=== PATIENT | male | born 1965 | race Caucasian/White ===

== ENCOUNTER → 2021-01-27 17:19 | Outpatient (CLI) | payer OTHER, SELFPAY ==
--- NOTE | ~2021-01-27 | XR_ITS ---
EXAMINATION: XR hip RT min 2V DATE: 01/27/2021 17:33 INDICATION: Right hip pain. TECHNIQUE: 2 views of right hip were obtained. COMPARISON: None. FINDINGS: Bone alignment is normal. No fracture. Right hip joint space is normal. IMPRESSION: 1. Normal right hip. Reviewed, dictated and finalized at location A. [employer]WORK IMPRESSION: 1. Normal right hip.
== END ==
PROVIDERS: PCP Family Medicine; Visit Provider Family Medicine
DX: M25.551 Pain in right hip (principal)
CPT/HCPCS: 73502

== ENCOUNTER 2021-04-10 00:49 | Day surgery (SDC) | payer OTHER, SELFPAY ==
[2021-03-31 15:36] VITALS: BMI 24.3
--- NOTE | 2021-04-09 09:25 | WPDANESEPPF ---
Anes - Initial Pre Proc Eval Procedure: Operation Date: 04/10/21 09:30 Proposed Procedures p Screening Colonoscopy - Devon Abel MD Date/Time: 04/09/21 09:25 Surgeon: Devon Abel MD Pre Op Diagnosis: family hx of colon ca, neoplasm screening Patient Data Age: 55 Gender: M Height: 1.78 m Weight: 77 kg Allergies Allergy/AdvReac Type Severity Reaction Status Date / Time No Known Allergies Allergy Verified 03/31/21 15:37 Home Medications Medication Instructions Recorded Confirmed Type No Home Medications 01/22/20 03/31/21 History Patient hx anesthesia problems: none Family hx anesthesia problems: none Results Review: All pre-operative results and documents have been reviewed as part of the pre-operative evaluation. [facility] Past Medical History Medical History (Updated 04/10/21 @ 08:58 by Primitivo Barraza DO) Degenerative arthritis of hip Family history of colon cancer Family history of prostate cancer Hyperlipidemia Trochanteric bursitis of right hip Wears glasses Family History Family History Father Carcinoma of colon Malignant neoplasm of prostate Social History Social History (Updated 03/04/21 @ 12:28 by Keri Bhandari) Smoking status: Never smoker Second hand tobacco smoke exposure: No Alcohol intake: current Drinks per week: 2 Substance use: never Substance use type: does not use Living arrangements: with family 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 [employer] Gender identity (if verbalized by the patient): Male Spiritual care concerns: No Anes - Eval Final PreProcedure Day of Procedure 04/09/21 09:25 Patient weight: normal Heart: regular rate and rhythm Lungs: clear to auscultation and normal air movement Airway: Mallampati scale class II Neurological: alert and oriented Last oral intake: >/= 8 hours ASA classification: II Emergent: no Anesthetic plan: proceed Anesthesia type and monitoring: general GIVS and standard monitoring Results Review: All pre-operative results and documents have been reviewed as part of the pre-operative evaluation. Informed Consent: The patient's anesthetic plan and its attendant risks and benefits were discussed with the patient/family/POA. Questions were solicited and answers provided to the satisfaction of the patient/family/POA.
--- NOTE | 2021-04-09 14:35 | PM.HPGS ---
History of Present Illness History of Present Illness Consent: Risks, benefits, and alternatives have been discussed and questions answered. Patient agrees to proceed with procedure. Chief complaint: family hx of colon ca, neoplasm screening Narrative: Burton Lakhani is a 55 year old male referred for colon cancer screening. His father had colon cancer. His last colonoscopy was 5 years ago Review of Systems Review of Systems: All systems reviewed & are unremarkable except as noted in HPI and below PMFSH Past Medical History Medical History Degenerative arthritis of hip Family history of colon cancer Family history of prostate cancer Hyperlipidemia Trochanteric bursitis of right hip Wears glasses Family History Family History Father Carcinoma of colon Malignant neoplasm of prostate Social History Social History Smoking status: Never smoker Second hand tobacco smoke exposure: No Alcohol intake: current Drinks per week: 2 Substance use: never Substance use type: does not use Living arrangements: with family Additional occupation/education comments: [employer] at [employer] Gender identity (if verbalized by the patient): Male Spiritual care concerns: No Meds Home Medications and Allergies Home Medications Medication Instructions Recorded Confirmed Type No Home Medications 01/22/20 03/31/21 History Allergies Allergy/AdvReac Type Severity Reaction Status Date / Time No Known Allergies Allergy Verified 03/31/21 15:37 Exam Resp: Auscultation: clear to auscultation bilaterally Cardio: Rate: regular rate Rhythm: regular rhythm GI: GI Palp: Yes Soft to palpation and No Tenderness to palpation present (GI) Assessment and Plan Assessment and plan (1) Colon cancer screening: Code(s): Z12.11 - Encounter for screening for malignant neoplasm of colon Status: Acute Assessment and Plan: Colonoscopy with possible biopsy or polypectomy or cautery or injection of substances.
[2021-04-10 08:38] VITALS: BP 111/78; PULSE 50; RESP 18; TEMP 36.8; O2SAT 100; BMI 24.1
[2021-04-10] MEDS: LACTATED RINGERS 1,000 ML 150 ML IV CONT (08:59)
[2021-04-10 09:54] VITALS: BP 93/57; PULSE 45; RESP 23; O2SAT 98
[2021-04-10 10:04] VITALS: BP 95/61; PULSE 46; RESP 22; O2SAT 98
[2021-04-10 10:14] VITALS: BP 119/62; PULSE 46; RESP 20; O2SAT 98
== END 2021-04-10 10:32 | disposition home or self-care (01) ==
PROVIDERS: PCP Family Medicine; Visit Provider Internal Medicine Gastroenterology
PROC: 0DJD8ZZ Inspection of Lower Intestinal Tract, Via Natural or Artificial Opening Endoscopic (ICD-10-PCS; CPT 45378; principal; 2021-04-10 09:30)
DX: Z12.11 Encounter for screening for malignant neoplasm of colon (principal); Z80.0 Family history of malignant neoplasm of digestive organs; M17.10 Unilateral primary osteoarthritis, unspecified knee; E78.5 Hyperlipidemia, unspecified
CPT/HCPCS: 45378; J2704; J7120

== ENCOUNTER → 2022-11-26 11:26 | Outpatient (CLI) | payer BC, SELFPAY ==
--- NOTE | ~2022-11-26 | XR_ITS ---
EXAMINATION: XR heel LT min 2V DATE: 11/26/2022 11:39 INDICATION: Left foot pain. TECHNIQUE: 2 views of left calcaneus were obtained. COMPARISON: None. FINDINGS: Bone alignment is normal. No fracture. There is a 2.3 cm nonaggressive lytic lesion in calc aneus. There are small enthesophytes at the posterior and plantar aspects of calcaneal tuberosity. IMPRESSION: 1. 2.3 cm nonaggressive lytic lesion in calcaneus, which may be an intraosseous lipoma or unicameral bone cyst. Reviewed, dictated and finalized at location E.
== END ==
PROVIDERS: PCP Family Medicine; Visit Provider Nurse Practitioner Family
DX: M89.50 Osteolysis, unspecified site (principal)
CPT/HCPCS: 73650

== ENCOUNTER 2022-11-29 11:09 | Outpatient (CLI) | payer BC, SELFPAY ==
[2022-11-29 11:39] LABS: Basophils Percent Auto 0.5 % (0.2-1.2); Eosinophils Absolute Auto 0.2 K/mm3 (0-0.3); Eosinophils Percent Auto 5.6 % (0-4.4); Hematocrit 42.8 % (42.0-52.0); Hemoglobin 14.1 g/dL (14.0-18.0); Immature Granulocyte Absolute 0.01 K/mm3 (0.00-0.031); Immature Granulocyte Percent A 0.3 % (0-0.5); Lymphocytes Absolute Auto 0.97 K/mm3 (0.9-3.2); Lymphocytes Percent Auto 25.9 % (18.3-44.2); Mean Corpuscular HGB Conc 32.9 g/dl (32-36); Mean Corpuscular Hemoglobin 31.3 pg (26-34); Mean Corpuscular Volume 95.1 fl (80-100); Mean Platelet Volume 9.5 fl (7.4-10.4); Monocytes Absolute Auto 0.6 K/mm3 (0.1-0.6); Monocytes Percent Auto 14.7 % (2.6-8.5); Platelet Count Result 231 k/mm3 (150-375); Red Cell Distribution Width 12.1 % (11.5-14.5); White Blood Count 3.8 K/mm3 (4.5-10.0)
[2022-11-29 11:54] LABS: Alanine Aminotransferase 17 U/L (6-50); Albumin Level 4.4 g/dL (3.5-5.1); Alkaline Phosphatase 52 U/L (38-126); Anion Gap 6 mmol/L (8-16); Aspartate Amino Transferase 35 U/L (17-59); Bilirubin,Total 0.5 mg/dL (0.2-1.3); Blood Urea Nitrogen 20 mg/dL (9-20); CRP < 0.5 mg/dL (<1.0); Calcium 8.9 mg/dL (8.4-10.2); Carbon Dioxide 31 mmol/L (22-30); Chloride 101 mmol/L (98-107); Estimated Glomerular Filt Rate > 60; Glucose 102 mg/dL (65-110); Potassium 4.6 mmol/L (3.4-5.0); Sodium 138 mmol/L (137-145)
[2022-11-29 11:56] LABS: Creatinine Urine 174.6 mg/dL
[2022-11-29 12:05] LABS: Complement C3 86 mg/dL (88-165)
[2022-11-29 12:09] LABS: Total Protein Urine Random < 5 mg/dL; Ur Ttl Prot Creatinine Ratio < 0.03 mg/mg (0-0.20)
[2022-11-29 12:16] LABS: Erythrocyte Sedimentation Rate 20 mm/hr (0-20)
[2022-11-29 12:51] LABS: Rheumatoid Factor < 12.0 IU/ML (<12)
[2022-11-29 13:20] LABS: Hepatitis B Surface Antigen Negative (Negative)
[2022-11-29 13:37] LABS: Hepatitis B Surface Anti Res Negative; Hepatitis C Virus Antibody Negative (Negative)
[2022-12-01 05:03] LABS: Lupus dRVVT Screen 41 sec (<=45); PTT-LA Screen 29 sec (<=40)
[2022-12-01 15:13] LABS: NIL 0.01 IU/mL; Quantiferon TB Plus, 1T NEGATIVE (NEGATIVE)
[2022-12-01 22:19] LABS: Anti Cyclic Citrullinated Pept <16 Units (<20)
[2022-12-03 05:54] LABS: Angiotensin Converting Enzyme 39.9 U/L (9-67)
== END 2022-11-29 11:10 | disposition home or self-care (01) ==
LOC: ANHLAB 11:11
PROVIDERS: PCP Family Medicine; Visit Provider Internal Medicine
DX: I73.00 Raynaud's syndrome without gangrene (principal); M06.041 Rheumatoid arthritis without rheumatoid factor, right hand; M06.042 Rheumatoid arthritis without rheumatoid factor, left hand; M35.00 Sjogren syndrome, unspecified; Z71.89 Other specified counseling; Z79.899 Other long term (current) drug therapy
CPT/HCPCS: 36415; 80053; 82164; 82570; 84156; 85025; 85613; 85652; 85730; 86140; 86160; 86200; 86430; 86480; 86706; 86803; 87340

== ENCOUNTER 2024-09-12 09:33 | Emergency (ER) | payer OTHER, SELFPAY ==
[2024-09-12 09:53] VITALS: BP 105/72; PULSE 62; RESP 16; TEMP 36.4; O2SAT 98
--- NOTE | 2024-09-12 10:13 | ED.EAR ---
HPI - Ear Problem General Chief complaint: Ear Stated complaint: Clogged L Ear Time Seen by Provider: 09/12/24 10:00 Source: patient and RN notes reviewed Mode of arrival: ambulatory Limitations: no limitations History of Present Illness HPI Narrative: 4-year-old male presents Express Care complaining of feeling like his left ear is clogged for the last 5 days. Patient said he went swimming over the weekend not sure if he got water in his ear use rubbing alcohol and also used debrox to help with the symptoms. Patient does symptoms were getting better however he says today he feels like fluid in his ears worse. Patient denies any ear pain, fevers, body aches, chills, cough, upper respiratory symptoms, dizziness, or any other symptoms. Patient says he has a history of chronic tinnitus as well. Related Data Home Medications ?Medication ?Instructions ?Recorded ?Confirmed ?Last Taken ?Type No Home Medications 09/12/24 09/12/24 Unknown History Allergies Allergy/AdvReac Type Severity Reaction Status Date / Time No Known Allergies Allergy Verified 09/12/24 09:53 Review of Systems Review of Systems: CONSTITUTIONAL: Denies fever, chills, or sweats. EYES: Denies visual changes, redness, or discharge. ENT: Denies rhinorrhea, congestion, sore throat, or otalgia. Positive for fluid in left ear. CARDIOVASCULAR: Denies chest pain, palpitations, dizziness, lightheadedness or edema. RESPIRATORY: Denies cough or dyspnea. GASTROINTESTINAL: Denies abdominal pain, nausea, vomiting, or diarrhea. GENITOURINARY: Denies dysuria or hematuria. SKIN: Denies rash or itching. MUSCULOSKELETAL: Denies back pain, joint pain, or myalgia. NEUROLOGIC: Denies headache, numbness, or weakness. PSYCHIATRIC: Denies anxiety or depression. All other systems reviewed are negative, except as documented in HPI. PMFSH Comments At the time of my signature, I reviewed and agree with the nursing past medical, surgical, social, and family history. There is no relevant family history pertinent to the patient complaint. Exam Narrative: GENERAL: This is a well-nourished, well-developed adult, in no apparent distress. They are non ill-appearing, nontoxic appearing. HEAD: normocephalic, atraumatic. EYES: Sclera clear/white. Conjunctiva normal. Vision is grossly intact. Extraocular movements intact EARS: External ears normal, auditory canals clear and without drainage, TMs normal without perforation. Hearing grossly intact. NOSE: External nose normal with no obvious nasal discharge, nasal turbinates are boggy, no redness, no rhinorrhea. THROAT: Mucous membranes moist, posterior pharynx clear, without erythema or swelling. Uvula midline. NECK: Neck supple, non-tender without lymphadenopathy, masses or thyromegaly. CARDIOVASCULAR: Regular rate and rhythm RESPIRATORY: Respiratory rate normal, respiratory effort nonlabored, no respiratory distress SKIN: warm, Dry, intact with no suspicious lesions or rash, good texture and turgor. NEURO: awake, alert, and oriented to person, place and time. There were no obvious focal neurologic abnormalities. EXTREMITIES: No joint tenderness, effusion, or edema noted. BACK: Nontender without deformity. No CVA tenderness. Course Course Emergency Course: Portions of this record may have been created with voice recognition software Level of Care: Express Care Visit Vital Signs Vital signs: Vital Signs Temperature 97.6 F 09/12/24 09:53 Pulse Rate 62 09/12/24 09:53 Respiratory Rate 09/12/24 09:53 Blood Pressure 105/72 09/12/24 09:53 Pulse Oximetry 98 09/12/24 09:53 Temperature 97.6 F 09/12/24 09:53 Pulse Rate 62 09/12/24 09:53 Respiratory Rate 09/12/24 09:53 Blood Pressure 105/72 09/12/24 09:53 Pulse Oximetry 98 09/12/24 09:53 Reviewed Medical Decision Making MDM Narrative Medical decision making narrative: Evidence of ear effusion or impacted cerumen to patient's left ear. No evidence of infection. Nasal turbinates are boggy, symptoms may be related to congestion. Recommend patient take daily Zyrtec and use Flonase. Discussed physical exam findings. Advised supportive measures and signs/symptoms to go to the ER. Pt is appropriate for outpt treatment and f/u. Differential Diagnosis Differential Diagnosis: Otitis media, otitis externa, impacted cerumen, allergies, allergic rhinitis, upper respiratory infection Vital Signs Vital Signs: Vital Signs Temperature 97.6 F 09/12/24 09:53 Pulse Rate 62 09/12/24 09:53 Respiratory Rate 09/12/24 09:53 Blood Pressure 105/72 09/12/24 09:53 Pulse Oximetry 98 09/12/24 09:53 Temperature 97.6 F 09/12/24 09:53 Pulse Rate 62 09/12/24 09:53 Respiratory Rate 16 09/12/24 09:53 Blood Pressure 105/72 09/12/24 09:53 Pulse Oximetry 98 09/12/24 09:53 Critical Care Time Critical Care Time Critical Care Time: No Discharge Plan Discharge Clinical Impression: Ear congestion Qualifiers: Laterality: left Qualified Code(s): H93.8X2 - Other specified disorders of left ear Patient Disposition: Home Condition: Stable Instructions: Earache (ED) Additional Instructions: You may use Zyrtec daily. Use Flonase daily 2 sprays each nostril. There is no evidence of earwax in your ear or signs of infection. Follow-up with PCP 3-5 days. He developed ear pain, fevers, ear drainage, please get re-evaluated may have an ear infection. Patient Language: Polish Prescriptions: No Action No Home Medications Follow-up/Referrals: Marshall Hope MD [Primary Care Provider] - Time of Disposition: 10:11
== END 2024-09-12 10:25 | disposition home or self-care (01) ==
PROVIDERS: PCP Family Medicine
DX: H93.8X2 Other specified disorders of left ear (principal)
CPT/HCPCS: 99211; G0463